=== PATIENT | male | born 2000 | race Hispanic/Latino ===

== ENCOUNTER 2022-03-13 08:48 | Emergency (ER) | payer OTHER | END 2022-03-13 11:14 | disposition home or self-care (01) | LOC: CSHERS 08:48 | DX: S60.221A Contusion of right hand, initial encounter (principal); S80.212A Abrasion, left knee, initial encounter; V43.52XA Car driver injured in collision with other type car in traffic accident, initial encounter; W22.11XA Striking against or struck by driver side automobile airbag, initial encounter ==